=== PATIENT | male | born 1955 | race Caucasian/White ===

== ENCOUNTER 2020-06-12 17:39 | Inpatient (IN) ==
[2020-06-12] MEDS ORDERED: Fluticasone Propionate Nasal 50 MCG/SPRAY BOTTLE NS PRN (22:08)
[2020-06-12] MEDS: *HR* OxyCODONE Immed Rel 5 MG TABLET PO PRN (22:57)
[2020-06-13 05:50] LABS: Basophils # 0.1 K/mcL (0.0-0.2); Basophils % 1.1 %; Eosinophils # 0.4 K/mcL (0.0-0.6); Eosinophils % 5.7 %; Hematocrit 30.2 % (37.5-50.1); Hemoglobin 9.6 g/dL (12.9-16.9); Immature Granulocytes % 0.4 % (0-4); Lymphocytes # 2.4 K/mcL (0.6-4.6); Lymphocytes % 31.6 %; Mean Corpuscular HGB Conc 31.8 g/dL (31.6-35.5); Mean Corpuscular Hemoglobin 24.9 pg (28.0-33.3); Mean Corpuscular Volume 78.4 fL (83.0-100.0); Mean Platelet Volume 9.7 fL (9.4-12.4); Monocytes # 0.7 K/mcL (0.0-1.3); Neutrophils # 3.9 K/mcL (1.6-8.9); Platelet Count 327 K/mcL (140-400); Red Blood Count 3.85 M/mcL (4.19-5.50); Red Cell Distribution Width 13.8 % (11.5-14.5); Segmented Neutrophils % 52.2 %; White Blood Count 7.5 K/mcL (4.3-11.1)
[2020-06-13] MEDS: *HR* Enoxaparin 40 MG/0.4 ML SYRINGE SQ SCH (05:52)
[2020-06-13] MEDS: *HR* OxyCODONE Immed Rel 5 MG TABLET PO PRN (06:02)
[2020-06-13 06:12] LABS: BUN/Creatinine Ratio 15 (6-26); Blood Urea Nitrogen 14 mg/dL (8-23); Calcium 8.7 mg/dL (8.6-10.3); Carbon Dioxide 27 mEq/L (23-29); Chloride 101 mEq/L (98-107); Glucose 120 mg/dL (70-105); Osmolality,Calculated 282 (280-300); Potassium 3.8 mEq/L (3.5-5.1); Sodium 135 mEq/L (136-145); eGFR For African Americans > 60 (> 60); eGFR For Non-African Americans > 60 (> 60)
[2020-06-13] MEDS: Aspirin Enteric Coated 325 MG Tablet PO SCH (08:40)
[2020-06-13] MEDS: gemfibroziL 600 MG TABLET PO SCH ×2 (08:40→20:35)
[2020-06-13] MEDS: Gabapentin 400 MG CAPSULE PO SCH ×3 (08:40→20:35)
[2020-06-13] MEDS: *HR* Metformin 500 MG TABLET PO SCH (08:40)
[2020-06-13] MEDS: lisinopriL 20 MG TABLET PO SCH (08:41)
[2020-06-13] MEDS ORDERED: NON-FORMULARY MEDICATION 1 EACH EACH (Omega-3 Fatty Acids [Fish Oil] 300 MG Capsule) PO SCH (09:00)
[2020-06-13] MEDS ORDERED: RED YEAST RICE 600 MG PO SCH (09:00)
[2020-06-14] MEDS: Gabapentin 300 MG CAPSULE PO SCH ×4 (02:58→21:18)
[2020-06-14] MEDS: *HR* Enoxaparin 40 MG/0.4 ML SYRINGE SQ SCH (05:40)
[2020-06-14] MEDS: Aspirin Enteric Coated 325 MG Tablet PO SCH (10:04)
[2020-06-14] MEDS: *HR* Metformin 500 MG TABLET PO SCH (10:04)
[2020-06-14] MEDS: *HR* OxyCODONE Immed Rel 5 MG TABLET PO PRN ×2 (10:04→17:56)
[2020-06-14] MEDS: gemfibroziL 600 MG TABLET PO SCH ×2 (10:06→21:19)
[2020-06-14] MEDS: polyethylene glycoL 3350 17 GM POWD.PACK PO SCH (15:14)
[2020-06-15] MEDS: *HR* OxyCODONE Immed Rel 5 MG TABLET PO PRN ×2 (06:36→21:52)
[2020-06-15] MEDS: *HR* Enoxaparin 40 MG/0.4 ML SYRINGE SQ SCH (06:36)
[2020-06-15] MEDS: Gabapentin 300 MG CAPSULE PO SCH ×3 (08:20→21:52)
[2020-06-15] MEDS: *HR* Metformin 500 MG TABLET PO SCH (08:20)
[2020-06-15] MEDS: Aspirin Enteric Coated 325 MG Tablet PO SCH (08:20)
[2020-06-15] MEDS: gemfibroziL 600 MG TABLET PO SCH ×2 (08:21→21:52)
[2020-06-15] MEDS: polyethylene glycoL 3350 17 GM POWD.PACK PO SCH (08:21)
[2020-06-16] MEDS: *HR* Enoxaparin 40 MG/0.4 ML SYRINGE SQ SCH (06:15)
[2020-06-16] MEDS: *HR* OxyCODONE Immed Rel 5 MG TABLET PO PRN ×3 (06:16→21:54)
[2020-06-16] MEDS: gemfibroziL 600 MG TABLET PO SCH ×2 (08:30→20:35)
[2020-06-16] MEDS: *HR* Metformin 500 MG TABLET PO SCH (08:30)
[2020-06-16] MEDS: Gabapentin 300 MG CAPSULE PO SCH ×3 (08:30→20:35)
[2020-06-16] MEDS: Aspirin Enteric Coated 325 MG Tablet PO SCH (08:30)
[2020-06-16] MEDS: polyethylene glycoL 3350 17 GM POWD.PACK PO SCH (08:31)
[2020-06-17] MEDS: *HR* OxyCODONE Immed Rel 5 MG TABLET PO PRN ×2 (04:31→17:39)
[2020-06-17] MEDS: *HR* Enoxaparin 40 MG/0.4 ML SYRINGE SQ SCH (04:31)
[2020-06-17 05:01] LABS: Basophils # 0.1 K/mcL (0.0-0.2); Basophils % 1.3 %; Eosinophils # 0.4 K/mcL (0.0-0.6); Eosinophils % 6.1 %; Hematocrit 31.4 % (37.5-50.1); Hemoglobin 9.8 g/dL (12.9-16.9); Immature Granulocytes % 0.8 % (0-4); Lymphocytes # 2.7 K/mcL (0.6-4.6); Lymphocytes % 42.9 %; Mean Corpuscular HGB Conc 31.2 g/dL (31.6-35.5); Mean Corpuscular Hemoglobin 24.9 pg (28.0-33.3); Mean Corpuscular Volume 79.7 fL (83.0-100.0); Mean Platelet Volume 9.1 fL (9.4-12.4); Monocytes # 0.6 K/mcL (0.0-1.3); Monocytes % 9.7 %; Neutrophils # 2.5 K/mcL (1.6-8.9); Red Blood Count 3.94 M/mcL (4.19-5.50); Red Cell Distribution Width 13.8 % (11.5-14.5); Segmented Neutrophils % 39.2 %; White Blood Count 6.4 K/mcL (4.3-11.1)
[2020-06-17 05:14] LABS: BUN/Creatinine Ratio 18 (6-26); Blood Urea Nitrogen 18 mg/dL (8-23); Calcium 8.9 mg/dL (8.6-10.3); Carbon Dioxide 28 mEq/L (23-29); Chloride 101 mEq/L (98-107); Glucose 117 mg/dL (70-105); Osmolality,Calculated 285 (280-300); Potassium 4.2 mEq/L (3.5-5.1); Sodium 136 mEq/L (136-145); eGFR For African Americans > 60 (> 60); eGFR For Non-African Americans > 60 (> 60)
[2020-06-17 05:18] LABS: Platelet Count 496 K/mcL (140-400)
[2020-06-17] MEDS: Gabapentin 300 MG CAPSULE PO SCH ×3 (09:05→21:06)
[2020-06-17] MEDS: gemfibroziL 600 MG TABLET PO SCH ×2 (09:05→21:06)
[2020-06-17] MEDS: Aspirin Enteric Coated 325 MG Tablet PO SCH (09:05)
[2020-06-17] MEDS: *HR* Metformin 500 MG TABLET PO SCH (09:06)
[2020-06-17] MEDS: polyethylene glycoL 3350 17 GM POWD.PACK PO SCH (09:06)
[2020-06-18] MEDS: *HR* OxyCODONE Immed Rel 5 MG TABLET PO PRN ×2 (05:16→20:51)
[2020-06-18] MEDS: *HR* Enoxaparin 40 MG/0.4 ML SYRINGE SQ SCH (05:17)
[2020-06-18] MEDS: Aspirin Enteric Coated 325 MG Tablet PO SCH (08:18)
[2020-06-18] MEDS: Gabapentin 300 MG CAPSULE PO SCH ×3 (08:18→20:51)
[2020-06-18] MEDS: *HR* Metformin 500 MG TABLET PO SCH (08:18)
[2020-06-18] MEDS: gemfibroziL 600 MG TABLET PO SCH ×2 (08:19→20:52)
[2020-06-18] MEDS: polyethylene glycoL 3350 17 GM POWD.PACK PO SCH (08:19)
[2020-06-18] MEDS: lisinopriL 20 MG TABLET PO SCH (08:19)
[2020-06-18 10:16] LABS: Basophils # 0.1 K/mcL (0.0-0.2); Basophils % 1.3 %; Eosinophils # 0.4 K/mcL (0.0-0.6); Hematocrit 34.2 % (37.5-50.1); Hemoglobin 10.6 g/dL (12.9-16.9); Lymphocytes # 2.5 K/mcL (0.6-4.6); Lymphocytes % 37.2 %; Mean Corpuscular Hemoglobin 24.9 pg (28.0-33.3); Mean Corpuscular Volume 80.3 fL (83.0-100.0); Mean Platelet Volume 9.1 fL (9.4-12.4); Monocytes # 0.6 K/mcL (0.0-1.3); Platelet Count 560 K/mcL (140-400); Red Blood Count 4.26 M/mcL (4.19-5.50); Red Cell Distribution Width 14.1 % (11.5-14.5); Segmented Neutrophils % 45.5 %; White Blood Count 6.7 K/mcL (4.3-11.1)
[2020-06-18 10:41] LABS: BUN/Creatinine Ratio 18 (6-26); Blood Urea Nitrogen 19 mg/dL (8-23); Calcium 9.1 mg/dL (8.6-10.3); Carbon Dioxide 27 mEq/L (23-29); Chloride 99 mEq/L (98-107); Glucose 128 mg/dL (70-105); Osmolality,Calculated 284 (280-300); Potassium 4.3 mEq/L (3.5-5.1); Sodium 135 mEq/L (136-145); eGFR For African Americans > 60 (> 60); eGFR For Non-African Americans > 60 (> 60)
[2020-06-19] MEDS: *HR* OxyCODONE Immed Rel 5 MG TABLET PO PRN (06:00)
[2020-06-19] MEDS: *HR* Enoxaparin 40 MG/0.4 ML SYRINGE SQ SCH (06:01)
[2020-06-19 08:25] VITALS: BP 115/75
[2020-06-19] MEDS: Aspirin Enteric Coated 325 MG Tablet PO SCH (08:58)
[2020-06-19] MEDS: Gabapentin 300 MG CAPSULE PO SCH (08:58)
[2020-06-19] MEDS: polyethylene glycoL 3350 17 GM POWD.PACK PO SCH (08:58)
[2020-06-19] MEDS: lisinopriL 20 MG TABLET PO SCH (08:58)
[2020-06-19] MEDS: *HR* Metformin 500 MG TABLET PO SCH (08:58)
[2020-06-19] MEDS: gemfibroziL 600 MG TABLET PO SCH (08:58)
== END 2020-06-19 10:50 | disposition home or self-care (01) | DRG 561 ==
LOC: INPGRE 21:22
PROVIDERS: ADMIT Family Medicine; ATTEND Family Medicine